=== PATIENT | male | born 1935 | race Asian ===

== ENCOUNTER 2021-07-30 14:11 | Inpatient (IN) | payer MEDICARE, OTHER ==
[~2021-07-30] VITALS: Ht 165.1 cm; Wt 49.0 kg
[2021-07-30] MEDS ORDERED: BACITRACIN ZINC OINT 15 GM TUBE TOP STA (14:22)
[2021-07-30] MEDS ORDERED: NEOMY/BACITRA/POLYMYXIN B OINT UD PACKET TP ONE ×2 (14:24→14:45)
[2021-07-30] MEDS ORDERED: TDAP DIPH,PERTUSS,TET VAC/PF 0.5 ML DISP.SYRIN IM ONE ×2 (14:30→14:43)
--- NOTE | 2021-07-30 14:40 | NUR ---
PT IS IN ROOM #1B. DR KANG EVALUATED THE PT.
[2021-07-30 16:12] LABS: HEMATOCRIT 36.7 % (36.7-47.1); MEAN CORPUSCULAR HEMOGLOBIN 30.7 uug (23.8-33.4); MEAN CORPUSCULAR VOLUME 92.8 fL (73.0-96.2); PLATELET COUNT (AUTO) 143 K/uL (152-348)
[2021-07-30 16:18] LABS: CREATININE 1.3 mg/dL (0.6-1.3); POTASSIUM 4.3 mmol/L (3.5-5.1)
--- NOTE | 2021-07-30 18:11 | NUR ---
PT WAS TRANSFERED TO TELEMETRY ROOM #307. REPORT WAS GIVEN TO HOSPITAL INTERN.
[2021-07-30] MEDS ORDERED: ENOXAPARIN SODIUM 40 MG/0.4 ML DISP.SYRIN SQ SCH (18:15)
[2021-07-30] MEDS ORDERED: Z GUARD REMEDY PASTE 57 GM TUBE TOP PRN (18:15)
[2021-07-30] MEDS ORDERED: ONDANSETRON 4 MG/2 ML VIAL IV PRN (18:15)
[2021-07-30] MEDS ORDERED: ACETAMINOPHEN 325 MG TABLET PO PRN (18:15)
[2021-07-30] MEDS ORDERED: IV 1/2NS 1000 ML 1,000 ML IV PRN (18:15)
[2021-07-30] MEDS ORDERED: ASCO500P18 PO (18:32)
[2021-07-30] MEDS ORDERED: VITAMIN B-1 PO (18:32)
[2021-07-30] MEDS ORDERED: CHOL-9 PO (18:32)
[2021-07-30] MEDS ORDERED: RISP2TAB85 PO (18:32)
[2021-07-30] MEDS ORDERED: ATOR20TA PO (18:32)
[2021-07-30] MEDS ORDERED: DONE10TA44 PO (18:32)
[2021-07-30] MEDS ORDERED: BENZ0.5T43 PO (18:32)
[2021-07-30] MEDS ORDERED: LORA10TA7 PO (18:32)
[2021-07-30] MEDS ORDERED: MULT-366 PO (18:32)
[2021-07-30] MEDS ORDERED: CYAN-28 PO (18:32)
[2021-07-30] MEDS ORDERED: FERR325T6 PO (18:32)
[2021-07-30] MEDS ORDERED: SENN-261 PO (18:32)
[2021-07-30] MEDS ORDERED: MAGN400O6 PO (18:37)
[2021-07-30] MEDS ORDERED: LORA-258 PO (18:37)
[2021-07-30] MEDS ORDERED: CLON0.1T PO (18:37)
[2021-07-30] MEDS ORDERED: POLY17PO4 PO (18:37)
[2021-07-30] MEDS ORDERED: ACET-2154 PO (18:37)
[2021-07-30] MEDS ORDERED: HYDR-501 PO (18:37)
[2021-07-30] MEDS ORDERED: MIDO2.5T PO (18:37)
--- NOTE | 2021-07-30 19:00 | NUR ---
Admitted a 86 years old male with Dx of frequent falls. Patient AAO to self only mainly confused. [place] speaking, but can speak little Persian. In no apparent distress. No signs or symptoms of pain or SOB. Left side of karthikeyan with open wound and bump and abrasion on left knee from the fall. Left side of forehead with steri strips intact done at the ER. Left knee abrasion cleanse with NS, pat dry and cover with band aid. 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 NSR on tele at 66/min. IV site on right upper arm intact and patent. Routine admission care done. Plan of care initiated. Safety measure initiated and call light within reached. Continue to monitor.
--- NOTE | 2021-07-30 19:00 | NUR ---
Telephone call to pt son Gene and was able to obtain some information for admission.
--- NOTE | 2021-07-30 19:50 | NUR ---
Williams Rodriguez into visit at bedside for MSE.
[2021-07-30 20:15] VITALS: BP 155/77
[2021-07-30] MEDS ORDERED: risperiDONE 2 MG TABLET PO SCH (21:00)
[2021-07-30] MEDS ORDERED: ATORVASTATIN 20 MG TABLET PO SCH (21:00)
[2021-07-30] MEDS ORDERED: ENOXAPARIN SODIUM 30 MG/0.3 ML DISP.SYRIN SUBCUT SCH (21:00)
[2021-07-31 00:05] VITALS: BP 126/72
--- NOTE | 2021-07-31 02:30 | NUR ---
Patient pulled out IV on right upper arm. Placed new IV on left FA #22G.
[2021-07-31 04:20] VITALS: BP 102/58
--- NOTE | 2021-07-31 06:23 | NUR ---
In no acute distress. No signs or symptoms of pain or SOB. IV site on left FA remains intact and patent. IVF infusing. Wound on left side of forehead with steri strip intact, still with minimal bleeding noted. Controlled A fib on tele with hr of 66/min. Abrasion on left knee area with band aid intact. Needs anticipated to and met. Safety measure maintained and call light within reached.
[2021-07-31] MEDS ORDERED: PANTOPRAZOLE SODIUM 40 MG TABLET.DR PO SCH (07:00)
[2021-07-31 07:21] LABS: MEAN CORPUSCULAR HEMOGLOBIN 30.5 uug (23.8-33.4); MEAN CORPUSCULAR VOLUME 92.4 fL (73.0-96.2); PLATELET COUNT (AUTO) 121 K/uL (152-348)
[2021-07-31 07:26] LABS: CREATININE 1.1 mg/dL (0.6-1.3); MAGNESIUM 1.9 mg/dL (1.8-2.4); POTASSIUM 3.9 mmol/L (3.5-5.1)
--- NOTE | 2021-07-31 07:54 | NUR ---
RECEIVED PATIENT REPORT FROM HYDRAULIC BOOM OPERATOR. PATIENT IS AxOx1, TAMAZIGHT SPEAKING ONLY. MITTENS PUT ON PATIENT TO AVOID PULLING OF IV LINE. BED LEFT IN LOWEST POSITION WITH CALL LIGHT WITHIN REACH.
[2021-07-31] MEDS ORDERED: LORATADINE 10 MG TABLET PO SCH (09:00)
[2021-07-31] MEDS ORDERED: FERROUS SULFATE 325 MG TABEC PO SCH (09:00)
[2021-07-31] MEDS ORDERED: [UNRECOGNIZED DRUG - OTHER] PO SCH (09:00)
[2021-07-31] MEDS ORDERED: Medication Not On Formulary EA (Ferrous Sulfate 325 MG) PO SCH (09:00)
[2021-07-31] MEDS ORDERED: CYANOCOBALAMIN 1,000 MCG TABLET PO SCH (09:00)
[2021-07-31] MEDS ORDERED: ASCORBIC ACID 500 MG TABLET PO SCH (09:00)
[2021-07-31] MEDS ORDERED: BENZTROPINE MESYLATE 0.5 MG TABLET PO SCH (09:00)
[2021-07-31] MEDS ORDERED: MULTIVIT THER IRON CA FA PO SCH (09:00)
[2021-07-31] MEDS ORDERED: Medication Not On Formulary EA (Cholecalciferol (Vitamin D3) (Vitamin D3) 1,000 UNITS) PO SCH (09:00)
[2021-07-31] MEDS ORDERED: CHOLECALCIFEROL 1,000 UNIT TABLET PO SCH (09:00)
[2021-07-31] MEDS ORDERED: DONEPEZIL 10 MG TABLET PO SCH (09:00)
[2021-07-31] MEDS ORDERED: MULTIVITAMINS,THERAPEUTIC TABLET PO SCH (09:00)
[2021-07-31] MEDS ORDERED: Medication Not On Formulary EA (Ascorbic Acid (Vitamin C) 500 MG) PO SCH (09:00)
[2021-07-31 11:18] VITALS: BP 99/60
--- NOTE | 2021-07-31 13:26 | NUR ---
WOUND CARE CONSULT: PT PRESENTS WITH STERI STRIPS AND BANDAGE TO LEFT FOREHEAD AND SKIN TEAR TO LEFT KNEE, PRESENT ON ADMISSION. BANDAGE AND STERI STRIPS REMOVED FROM FOREHEAD AND PT EXAMINED BY FELIX SPENCE NP. WOUND CARE ORDERS RECEIVED AND DISCUSSED WITH NURSING STAFF. /DOCUMENT SPECIALIST IN AGREEMENT WITH PLAN OF CARE. Addendum: 07/31/21 at 1328 by GHAZAL SLATER RN Amended: Links added.
[2021-07-31 15:12] VITALS: BP 133/45
--- NOTE | 2021-07-31 17:59 | NUR ---
PATIENT WAS DISCHARGED WITH EMT AND TAKEN TO [facility]. PATIENT AxOx1 ON ROOM AIR. NO SIGNS OF ACUTE DISTRESS. VITAL SIGNS WNL. PERSONAL BELONGINGS ACCOUNTED FOR. IV ACCESS REMOVED. ID ARM BAND REMOVED. NURSING REPORT GIVEN TO [place] [facility].
[2021-07-31] MEDS ORDERED: ENOXAPARIN SODIUM 40 MG/0.4 ML DISP.SYRIN SQ SCH (21:00)
== END 2021-07-31 17:55 | DRG 87 ==
LOC: ER 14:48 → TELE3 18:00
PROVIDERS: ADMIT Nurse Practitioner Family; ATTEND Nurse Practitioner Family
DX: S06.5X0A Traumatic subdural hemorrhage without loss of consciousness, initial encounter (principal); W01.0XXA Fall on same level from slipping, tripping and stumbling without subsequent striking against object, initial encounter; Y92.099 Unspecified place in other non-institutional residence as the place of occurrence of the external cause; R29.6 Repeated falls; G20 Parkinson's disease; F02.80 Dementia in other diseases classified elsewhere, unspecified severity, without behavioral disturbance, psychotic disturbance, mood disturbance, and anxiety; N18.9 Chronic kidney disease, unspecified; Z66 Do not resuscitate; Z95.0 Presence of cardiac pacemaker; R79.89 Other specified abnormal findings of blood chemistry; Z20.822 Contact with and (suspected) exposure to COVID-19
CPT/HCPCS: 36415; 70450; 71045; 72125; 83735; 85025; 85730; 86850; 86900; 86901; 90715; 93005; 97161; A4663; G0378; J1650; J3490; J7030